=== PATIENT | female | born 1965 | race Two or more races ===

== ENCOUNTER 2017-03-31 17:43 | Emergency (ER) | payer SELFPAY ==
[~2017-03-31] VITALS: Ht 165.1 cm; Wt 88.5 kg
[2017-03-31 22:34] VITALS: BP 130/85
[2017-03-31 22:57] LABS: Basophils # (auto) 0 uL; Basophils % (auto) 0.4 % (0.0-2.0); Eosinophils # (auto) 0.2 uL; Eosinophils % (auto) 1.7 % (0.0-7.0); Hematocrit 37.6 % (36.0-46.0); Hemoglobin 12.8 g/dL (12.2-16.2); Lymphocytes # (auto) 2.3 uL; Lymphocytes % (auto) 21.7 % (10.0-50.0); Mean Corpuscular Hemoglobin 29.5 pg (28.0-32.0); Mean Corpuscular Hgb Conc. 34.1 g/dL (32.0-36.0); Mean Corpuscular Volume 86.4 fL (80.0-100.0); Mean Platelet Volume 8.3 fL (7.4-10.4); Monocytes # (auto) 0.6 uL; Monocytes % (auto) 5.5 % (0.0-12.0); Neutrophils # (auto) 7.5 uL; Neutrophils % (auto) 70.7 % (37.0-80.0); Platelet Count (auto) 296 10^3/uL (140-450); Red Cell Distribution Width 13.7 % (11.6-16.0); White Blood Cell 10.6 10^3/uL (4.4-10.8)
[2017-03-31 23:23] LABS: Albumin 3.1 g/dL (3.4-5.0); Calcium 8.4 mg/dL (8.5-10.1); Potassium 3.5 mmol/L (3.5-5.1)
[2017-03-31 23:25] LABS: BUN/Creatinine Ratio 13.3
[2017-03-31 23:28] LABS: Bilirubin, Total 0.3 mg/dL (0.2-1.0); Total Protein 7.4 g/dL (6.4-8.2)
[2017-03-31 23:56] LABS: INR 0.94 (0.9-1.15); Partial Thromboplastin Time 29.4 sec (22.64-33.71); Prothrombin Time 10.2 sec (9.37-12.3)
== END 2017-04-01 02:03 | disposition home or self-care (01) ==
LOC: ER 17:52
DX: I83.92 Asymptomatic varicose veins of left lower extremity (principal); Z98.51 Tubal ligation status
CPT/HCPCS: 36415; 73502; 80053; 85025; 85610; 85730; 93971